=== PATIENT | female | born 1990 | race Caucasian/White ===

== ENCOUNTER → 2021-07-01 | Outpatient (CLI) | payer OTHER ==
[~2021-07-01] MED LIST: NEXPLANON; OMEP20CA16 PO; OXYC-325 PO; PREN-48 PO; acyclovir
== END ==
LOC: LAB 11:11
PROVIDERS: ATTEND Surgery
DX: Z01.812 Encounter for preprocedural laboratory examination (principal); Z20.822 Contact with and (suspected) exposure to COVID-19; K64.4 Residual hemorrhoidal skin tags
CPT/HCPCS: U0003

== ENCOUNTER → 2021-07-06 | Day surgery (SDC) | payer OTHER ==
[~2021-07-06] MED LIST changes: +ACETAMINOPHEN 500 MG TABLET PO ONE; +BUPIVACAINE-EPI 0.25%-1:200000 MPF 30 ML VIAL. INJ ONE; +BUPIVACAINE-EPI 0.25%-1:200000 MPF 30 ML VIAL. ONE; +DEXAMETHASONE SOD PHOS 20 MG/5 ML VIAL. ONE; +IPRATRPIUM/ALBUTEROL 0.5/2.5MG 3 ML NEBU. NEB PRN; +IV RINGERS SOLUTION,LACTATED 1,000 ML IV SCH; +LIDOCAINE 2% PF 5 ML VIAL. ONE; +MIDAZOLAM HCL PF 2 MG/2 ML VIAL. IV ONE; +MIDAZOLAM HCL PF 2 MG/2 ML VIAL. ONE; +NEOMY/BACITR/POLYMYXIN OINT PACKET. TP ONE; +ONDANSETRON PF 4 MG/2 ML VIAL. IV PRN; +ONDANSETRON PF 4 MG/2 ML VIAL. ONE; +PROPOFOL 10,000 MCG/ML (20ML) VIAL IV ONE; +SEVOFLURANE 31 TO 60 MINUTES. IH ONE; +SUCCINYLCHOLINE 200 MG/10 ML VIAL. ONE; +ceFAZolin SODIUM 1 GM VIAL ONE
[2021-07-06 07:29] LABS: U PREG PATIENT NEGATIVE (NEG)
--- NOTE | 2021-07-06 07:52 | PDOC1 ---
History of Present Illness Reason for Visit: External hemorrhoids History of Present Illness 31-year-old female with complaints of having hemorrhoids at the time of her since her she has excess anal skin which causes difficulty with hygiene the hemorrhoids themselves of regressed she does occasionally have some bleeding and pain Chief Complaint: External hemorrhoids Allergies: Coded Allergies: No Known Drug Allergies (Unverified , 06/16/21) Past Medical History Cardiac: No pertinent hx Pulmonary: No pertinent hx GI: No pertinent hx Heme/Onc: No pertinent hx Hepatobiliary: No pertinent hx Psych: No pertinent hx Musculoskeletal: No pertinent hx Rheumatologic: No pertinent hx Infectious disease: No pertinent hx ENT: No pertinent hx Renal/: No pertinent hx Endocrine: No pertinent hx Dermatology: No pertinent hx Past Surgical History: No pertinent history Family History: No pertinent hx Past Social History Smoke: No Alcohol: rare Drugs: None Lives: with Family Review of Systems Review Of Systems Fourteen system , review of systems has been reviewed. See HPI for pertinent positives and negative responses, other white all other systems are negative, non pertinent or non contributory Constitutional: No: Fever, Chills, Sweats, Weakness, Malaise, Other Eyes: No: Blurry vision, Decreased vision, Double vision, Dry eyes, Excessive tearing, Eye Pain, Itchy Eyes, Loss of vision, Photophobia, Scotomata, Uses contacts, Uses glasses, Other ENT: No: Ear pain, Ear discharge, Nose pain, Nose discharge, Nose congestion, Mouth pain, Mouth swelling, Throat pain, Throat swelling, Other Respiratory: No: Cough, Hemoptysis, Orthopnea, Pleuritic Pain, Shortness of breath, SOB with excertion, Sputum Changes, Stridor, Tachypnea, Wheezing, Other Cardiovascular: No: Chest Pain, Palpitations, Orthopnea, Paroxysmal Noc. Dyspnea, Edema, Lt Headedness, Other Gastrointestinal: YES: Other (Anal pain) Genitourinary: No: Change in Menstrual Cycle, Dysmenorrhea, Dyspareunia, Dysuria, Flank Pain, Genital Discharge, Genital Ulcers, Henaturia, Incontinence, Irregular/heavy Menses, Nocturia, Pelvic Pain, Scrotal Mass/pain, Slowing Urinary Stream, Urinary Frequency/urgency, Vulvar/vaginal Symptoms, Other Musculoskeletal: No: Gait Disturbance, Joint Pain, Joint Stiffness, Joint S welling, Muscle Pain, Muscular Weakness, Pain In:, Swelling In:, Other SKIN: No: Warm, Dry, No Rashes, Cool, Diaphoretic, Cyanotic, Rash, Other Neurological: No: Behavorial Changes, Bowel/Bladder ControlChng, Confusion, Dizziness, Gait Disturbance, Headaches, Impaired Coord/balance, Memory Loss, Numbness/Tingling, Seizures, Speech Problems, Tremors, Visual Changes, Weakness, Other Medications Current Medications Cefazolin Sodium 1 gm/Sodium Chloride 50 ml @ 100 mls/hr 1X ONCE IV ; Start 07/06/21 at 07:00; Stop 07/06/21 at 07:29; Status DC Acetaminophen (Tylenol) 1,000 mg 1X ONCE PO Last administered on 07/06/21at 07:23; Start 07/06/21 at 07:00; Stop 07/06/21 at 07:01; Status DC Ondansetron HCl (Zofran) 4 mg PRN Q6HRS PRN IV Nausea, 1st Choice; Start 07/06/21 at 07:00; Stop 07/06/21 at 23:00 Albuterol/ Ipratropium (Duoneb) 3 ml 1X PRN PRN NEB Shortness of Breath; Start 07/06/21 at 07:00; Stop 07/06/21 at 23:00 Midazolam HCl (Versed) 2 mg 1X ONCE IV ; Start 07/06/21 at 07:00; Stop 07/06/21 at 07:06; Status DC Lactated Ringer's 1,000 ml @ 125 mls/hr Q8H IV Last administered on 07/06/21at 07:40; Start 07/06/21 at 07:00; Stop 07/06/21 at 18:59 Active Scripts Active Reported [nexplanon] [acyclovir] 500 Mg DAILY Omeprazole 20 Mg Capsule. 1 Cap PO DAILY Vitamin Tablet ( Vit No.124/Iron/FA) 1 Each Tablet 1 Tab PO DAILY 30 Days Exam Vital Signs Vital Signs Date Time Temp Pulse Resp B/P (MAP) Pulse Ox O2 Delivery O2 Flow Rate FiO2 07/06/21 07:24 98.8 81 17 111/73 (86) 98 Room Air General Appearance: Alert, Oriented X3, Cooperative, No acute distress HEENT: Atraumatic, PERRLA, EOMI Respiratory: Clear to auscultation, Normal air movement Heart: Regular rate, No murmurs Abdominal: Normal bowel sounds, Soft, No tenderness Extremities: No edema Rectal Exam: Ext hemorrhoids noted Skin: No significant lesion Neuro: Normal speech Psych/Mental Status: Mental status NL Assessment/Plan Assessment/Plan External hemorrhoids plan excision COURSE Allergies Coded Allergies Type Severity Reaction Last Updated Verified No Known Drug Allergies 06/16/21 No Laboratory Tests Test 07/06/21 07:05 Urine Test Negative (NEG) Current Medications Medications (Trade) Dose Ordered Sig/Mark Route PRN Reason Start Time Stop Time Status Last Admin Dose Admin Cefazolin Sodium 1 gm/Sodium Chloride 50 ml @ 100 mls/hr 1X ONCE IV 07/06/21 07:00 07/06/21 07:29 DC Acetaminophen (Tylenol) 1,000 mg 1X ONCE PO 07/06/21 07:00 07/06/21 07:01 DC 07/06/21 07:23 Ondansetron HCl (Zofran) 4 mg PRN Q6HRS PRN IV Nausea, 1st Choice 07/06/21 07:00 07/06/21 23:00 Albuterol/ Ipratropium (Duoneb) 3 ml 1X PRN PRN NEB Shortness of Breath 07/06/21 07:00 07/06/21 23:00 Midazolam HCl (Versed) 2 mg 1X ONCE IV 07/06/21 07:00 07/06/21 07:06 DC Lactated Ringer's 1,000 ml @ 125 mls/hr Q8H IV 07/06/21 07:00 07/06/21 18:59 07/06/21 07:40 Orders Procedure Category Date Status Time Test,Urine LAB 07/06/21 Complete 07:00 Vital Signs, Per [facility] 07/06/21 In Process Protocol 06:53 Pulse Oximetry: [facility] 07/06/21 In Process Standing Order 06:53 Veterinarian Laboratory Animal Care [facility] 07/06/21 In Process 06:53 Elevate Head Of Bed [facility] 07/06/21 In Process 06:53 Discharge From [facility] 07/06/21 In Process Hospital 06:53 Ondansetron Pf [facility] 07/06/21 In Process (Zofran) 07:00 Ipratrpium/Albuterol [facility] 07/06/21 In Process 0.5/2.5mg (Duoneb) 07:00 Anesthesia Adult Ranjana [facility] 07/06/21 In Process Pre-Op Pr 06:53 Midazolam Hcl Pf [facility] 07/06/21 Complete (Versed) 07:00 Vital Signs, Per [facility] 07/06/21 In Process Protocol 06:53 Pulse Ox - [facility] 07/06/21 In Process Intermittent 06:53 Iv Ringers [facility] 07/06/21 In Process Solution,Lactated (Iv 07:00 Vital Signs Date Time Temp Pulse Resp B/P (MAP) Pulse Ox O2 Delivery O2 Flow Rate FiO2 07/06/21 07:24 98.8 81 17 111/73 (86) 98 Room Air Justification of Admission: Justification of Admission: Justification of Admission Dx: N/A CHRISTOPHE PARMAR MD July 06, 2021 07:52
--- NOTE | 2021-07-06 08:22 | PDOC4 ---
Operative Report DATE July 06, 2021 at 8:20 AM Preop Diagnosis External hemorrhoids Post-op Diagnosis Same Operation Performed Excision of external hemorrhoids Patient is a 31-year-old female with complaints of external hemorrhoids causing some pain discomfort and troubles with hygiene. Procedure of excision of external hemorrhoids was explained to the patient in detail risk-benefit were also discussed including bleeding infection alternatives this procedure also discussed with the patient who seemed to understand and gave a verbal written consent to have the procedure performed. Patient was taken to the operating room placed in the supine position general anesthesia was initiated once patient was sleeping intubated she was placed in low lithotomy positioning and her peritoneum was prepped and draped usual sterile fashion was Betadine scrub and solution. An area around the external hemorrhoids was injected with quarter percent Marcaine with epinephrine once this was complete external hemorrhoids grasped with a Allis clamp and using the harmonic scalpel excised. Once they are completely removed the area was dressed with antibiotic ointment 4 x 4's and mesh pants. Patient was awakened extubated operating room taken recovery in stable condition all sponge instrument needle counts listed as correct estimated blood loss 5 mL Surgeon Scott ANESTHESIA PROPOSED: GENERAL, LOCAL Blood Loss 5 mL Specimen External hemorrhoids Complications None CHRISTOPHE PARMAR MD July 06, 2021 08:22
--- NOTE | 2021-07-06 08:25 | DISCH ---
DISCHARGE INSTRUCTIONS-DC Condition on Discharge Condition on Discharge: Stable Activity after Discharge Activity Instructions for Disc: Avoid exertion Diet after Discharge Diet after Discharge: Regular Wound/Incision Care Other wound/incision instructi: Jodee shower in 24 hours Contacting the DRHali after DC Call your doctor for: If your condition worsens Follow-Up Follow up with: Dr. Parmar in 2 weeks CHRISTOPHE PARMAR MD July 06, 2021 08:25
[2021-07-06 09:21] VITALS: BP 119/75
--- NOTE | 2021-07-08 17:15 | PATHOLOGY ---
[facility] Accession Number: [id number] . 01 Material submitted: . hemorrhoids - HEMORRHOIDS . 01 Clinical history: . HEMORRHOIDS . 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 (JPM:shelly; 07/08/2021) S 07/08/2021 1401 Local . 02 Comment: There is no evidence of malignancy. (JPM:shelly; 07/08/2021) . 02 Electronically signed: . Tim Godinez MD, Pathologist NPI- [id number] . 01 Gross description: . The specimen is received in formalin, labeled "Fields, Pattie", "hemorrhoids". Received are 3 segments of wrinkled, pale pink-blanco skin and soft tissue, ranging in size from 1.2 cm to 1.6 cm. Sectioning reveals no solid masses or nodules. A traffic workforce representative section from each segment is submitted in cassette A1.([facility]; 07/07/2021) MICHELLE/BLAIR 07/07/2021 0849 Local . 02 Pathologist provided ICD-10: K64.4 . 02 CPT . 793184 Specimen Comment: A courtesy copy of this report has been sent to [phone] Specimen Comment: Report sent to Specimen Comment: A duplicate report has been generated due to demographic updates. Performed at: 01 [facility] [address] [id number] MD Zhen Rabago MD Phone: [phone] Performed at: 02 [facility] [address], [place] [id number] MD Tim Godinez MD Phone: [phone]
--- NOTE | 2021-07-13 08:37 | NUR ---
Patient called to report increased pain past three days in right buttock area. Described hard, red area in this same location. Patient stated no fever. This nurse advised patient to call surgeon right now, if unable to be see right away by surgeon or PCP to report to the nearest emergency department instead. Gave phone number to surgeon office. Patient verbalized understanding.
== END | disposition home or self-care (01) ==
LOC: SURG 06:51
PROVIDERS: ATTEND Surgery
DX: K64.4 Residual hemorrhoidal skin tags (principal); G43.909 Migraine, unspecified, not intractable, without status migrainosus; K21.9 Gastro-esophageal reflux disease without esophagitis; Z79.899 Other long term (current) drug therapy; Z72.89 Other problems related to lifestyle
CPT/HCPCS: 46999; 81025; J0690; J1100; J2001; J2250; J2405; J2704; J3010; J3490; J7120